=== PATIENT | male | born 2005 | race Hispanic/Latino ===

== ENCOUNTER 2024-04-25 13:27 | Emergency (ER) | payer SELFPAY ==
--- NOTE | 2024-04-25 13:40 | ED.MALEGU ---
HPI - Male Genitourinary General Chief complaint: Urogenital-Male Stated complaint: STD testing Time Seen by Provider: 04/25/24 13:40 Source: patient Mode of arrival: ambulatory Limitations: no limitations History of Present Illness HPI Narrative: Bebeto is a 19 year male patient presenting to the clinic today with complaints of exposure to chlamydia. States that his tested positive for chlamydia/and had atopic 2 days ago. No penile discharge, fever, chills, urinary symptoms, back pain, or abdominal pain Related Data Allergies Allergy/AdvReac Type Severity Reaction Status Date / Time No Known Allergies Allergy Verified 04/25/24 13:29 Review of Systems Review of Systems: Pertinent positives per HPI. Patient denies any fever, chills, rash, headache, visual changes, dizziness, cough, runny nose, sore throat, shortness of breath, chest pain, palpitations, nausea, vomiting, diarrhea, constipation, abdominal pain, or any urinary issues. PMFSH Comments At the time of my signature, I reviewed and agree with the nursing past medical, surgical, social, and family history. There is no relevant family history pertinent to the patient complaint. Exam Narrative: General: Well-developed, well nourished, in no apparent distress. Head: Normocephalic, atraumatic. Cardio: Regular rate and rhythm, s1 and s2 normal, no murmur appreciated. Resp: Clear to auscultation bilaterally, no rhonchi, rales, wheezing or rubs. Abdomen: Soft, pliable, bowel sounds present in all quadrants, non-tender to palpation, no organomegly, no CVAT tenderness. Course Course Emergency Course: Portions of this record may have been created with voice recognition software. Level of Care: Express Care Visit Vital Signs Vital signs: Vital Signs Temperature 36.8 C 04/25/24 13:43 Pulse Rate 90 04/25/24 13:43 Respiratory Rate 16 04/25/24 13:43 Blood Pressure 147/80 H 04/25/24 13:43 Pulse Oximetry 100 04/25/24 13:43 Oxygen Delivery Room Air 04/25/24 13:43 Temperature 36.8 C 04/25/24 13:43 Pulse Rate 90 04/25/24 13:43 Respiratory Rate 16 04/25/24 13:43 Blood Pressure 147/80 H 04/25/24 13:43 Pulse Oximetry 100 04/25/24 13:43 Oxygen Delivery Room Air 04/25/24 13:43 Vital signs reviewed MDM - Male Genitourinary MDM Narrative Medical decision making narrative: At the time of visit patient is resting comfortably on the exam table. Patient appears to be nontoxic. Labs: Chlamydia, gonorrhea, and Trichomonas testing was sent to the lab Plan: Rocephin 500 mg IM was given in the clinic today and prescription for doxycycline was sent to the pharmacy. Supportive measures were discussed with the patient and they voiced understanding discharge instructions and agrees to treatment plan. Return precautions reviewed Differential Diagnosis Differential diagnosis: Likely urinary tract infection, urethritis, epididymitis and other (Chlamydia, gonorrhea, Trichomonas) Lab Data Labs: Urine Characteristics Clear Discharge Plan Discharge Clinical Impression: Exposure to chlamydia Patient Disposition: Home, Self-Care Condition: Stable Instructions: Antibiotic Form, Chlamydia (ED) Additional Instructions: Rocephin 500 mg IM given in the clinic today Take doxycycline as prescribed We have tested/treated you for STIs in the clinic today. Avoid any sexual activity- includes oral, anal, or vaginal intercourse until you get results back and have completed any additional recommended treatment regimens. May call Express care location that you had testing completed for results in that time frame. We will contact you if testing is positive and make sure your treatment was appropriate for the type of STI. If symptoms worsen after treatment recommend reevaluation with your PCP or Express care. Prescriptions: New
[2024-04-25 13:43] VITALS: BP 147/80; PULSE 90; RESP 16; TEMP 36.8; O2SAT 100
[2024-04-25] MEDS: cefTRIAXone 500 MG, LIDOCAINE HCL 1% LOCAL INJ 1 ML IM (13:56)
[2024-04-25 19:51] LABS: Trichomonas Vag PCR NOT DETECTED (NOT DETECTE)
[2024-04-25 20:14] LABS: Chlamydia trachomatis DETECTED (NOT DETECTE); Neisseria gonorrhoeae PCR NOT DETECTED (NOT DETECTE)
== END 2024-04-25 14:08 | disposition home or self-care (01) ==
PROVIDERS: Emergency Provider Nurse Practitioner Family; PCP Registered Nurse
DX: Z20.2 Contact with and (suspected) exposure to infections with a predominantly sexual mode of transmission (principal)
CPT/HCPCS: 87491; 87591; 87661; 96372; 99213; G0463; J0696